=== PATIENT | female | born 2000 | race Caucasian/White ===

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

== ENCOUNTER 2023-05-14 10:35 | Emergency (ER) | payer OTHER, SELFPAY ==
[2023-05-14 10:51] VITALS: BP 110/71; PULSE 81; RESP 18; TEMP 36.3; O2SAT 100
[2023-05-14 11:18] LABS: Appearance Urine Cloudy (Clear); Bacteria Urine 1+ /hpf; Bilirubin Urine Negative (Negative); Blood Urine Negative (Negative); Color Urine Yellow (Yellow); Glucose Urine UA Negative (Negative); Ketones Urine 2+ mg/dL (Negative); Leukocyte Esterase Ur 1+ LEU/UL (Negative); Nitrate Urine Negative (Negative); Non Pathogenic Casts 0-2; Protein Urine Negative (Negative); RBC Urine 0-2 /hpf (0-2); Specific Grav Ur 1.025 (1.001-1.035); Squamous Epithelial Cell Urine Moderate /hpf (Few)
[2023-05-14 11:29] LABS: Add Urine Microscopic? YES
[2023-05-14 11:49] LABS: Basophils Percent Auto 0.4 % (0.2-1.2); Eosinophils Percent Auto 0.3 % (0-4.4); Hematocrit 43.1 % (37.0-47.0); Hemoglobin 14.5 g/dL (12.0-15.0); Immature Granulocyte Absolute 0.03 K/mm3 (0.00-0.031); Immature Granulocyte Percent A 0.4 % (0-0.5); Lymphocytes Absolute Auto 0.31 K/mm3 (0.9-3.2); Lymphocytes Percent Auto 4.3 % (18.3-44.2); Mean Corpuscular HGB Conc 33.6 g/dl (32-36); Mean Corpuscular Hemoglobin 31.4 pg (26-34); Mean Corpuscular Volume 93.3 fl (80-100); Monocytes Absolute Auto 0.2 K/mm3 (0.1-0.6); Neutrophils Absolute Auto 6.7 K/mm3 (1.3-6.7); Neutrophils Percent Auto 91.6 % (45.5-73.1); Platelet Count Result 252 k/mm3 (150-375); Red Blood Count 4.62 M/mm3 (4.2-5.4); Red Cell Distribution Width 12.4 % (11.5-14.5); White Blood Count 7.3 K/mm3 (4.5-10.0)
[2023-05-14 11:58] LABS: Alanine Aminotransferase 14 U/L (6-35); Albumin Level 4.5 g/dL (3.5-5.1); Alkaline Phosphatase 55 U/L (38-126); Anion Gap 6 mmol/L (8-16); Aspartate Amino Transferase 24 U/L (14-36); Bilirubin,Total 1.3 mg/dL (0.2-1.3); Blood Urea Nitrogen 19 mg/dL (7-17); Calcium 9.3 mg/dL (8.4-10.2); Carbon Dioxide 25 mmol/L (22-30); Chloride 106 mmol/L (98-107); Estimated CRCL calculation 107 ml/min; Estimated Glomerular Filt Rate > 60; Glucose 118 mg/dL (65-110); Lipase 41 U/L (23-300); Potassium 3.9 mmol/L (3.4-5.0); Sodium 137 mmol/L (137-145)
[2023-05-14 12:00] VITALS: BP 104/63; BP 114/68; PULSE 58; PULSE 62
[2023-05-14 12:01] VITALS: BP 114/68; PULSE 62; RESP 15; O2SAT 99
[2023-05-14 12:02] VITALS: BP 98/48; PULSE 78
[2023-05-14] MEDS: ONDANSETRON INJ 4 MG/2 ML VIAL IV PUSH (12:02)
[2023-05-14] MEDS: SODIUM CHLORIDE 0.9% IV 1,000 ML 999 ML IV CONT (12:02)
[2023-05-14 13:14] VITALS: BP 114/66; PULSE 60; RESP 14; O2SAT 100
--- NOTE | 2023-05-14 13:24 | ED.NAVMDI ---
HPI - Nausea/Vomiting/Diarrhea General Chief complaint: Nausea/Vomiting/Diarrhea Stated complaint: N&V Time Seen by Provider: 05/14/23 11:42 History of Present Illness HPI Narrative: patient is a 22-year-old female who presents ER with nausea and vomiting. Sudden onset this morning. Associated with diarrhea. Unable to keep any food down. She reports her children have recently had a GI illness. No blood in her stool or emesis. No fevers or chills or sweats. No syncope. She does get lightheaded with standing. Related Data Allergies Allergy/AdvReac Type Severity Reaction Status Date / Time No Known Allergies Allergy Mild Verified 05/14/23 10:55 Review of Systems Review of Systems: All systems reviewed & are unremarkable except as noted in HPI and below ENT: Reports system reviewed and no additional complaints, except as documented Cardiovascular: Cardiovascular: Reports no additional cardiovascular complaints Respiratory: Respiratory: Reports no additional respiratory complaints Gastrointestinal: Gastrointestinal: Denies abdominal pain, Reports bloating, Reports diarrhea, Reports nausea and Reports vomiting Genitourinary: Genitourinary: Reports no additional female genitourinary complaints [facility] Past Medical History Medical History (Updated 05/14/23 @ 13:29 by Ger Butcher MD) Healthy female adult Surgical History Surgical History (Updated 05/14/23 @ 13:27 by Ger Butcher MD) No history of previous surgery Social History Social History (Updated 09/06/19 @ 13:15 by Krunal Lee, PAZacC) Smoking status: Never smoker Exam Narrative: GENERAL: Well-appearing, well-nourished, and in no acute distress. HEAD: Normocephalic, atraumatic. ENT: Mucous membranes moist. CHEST: Clear to auscultation. No respiratory distress. HEART: Regular rate and rhythm. Normal peripheral pulses. ABDOMEN: Soft, nontender, nondistended. EXTREMITIES: Normal range of motion. No edema. SKIN: Warm, dry, no rash. NEURO: Alert and oriented x3. PSYCH: Normal mood and affect. Course Course Emergency Course: patient feels much better after IV fluid and the Zofran. She is eating and drinking without issue. Discharge home with supportive care. Patient without urinary symptoms will not treat the urinalysis at this time. Recommend follow-up with PCP. Vital Signs Vital signs: Vital Signs Temperature 97.3 F L 05/14/23 10:51 Pulse Rate 81 05/14/23 10:51 Respiratory Rate 18 05/14/23 10:51 Blood Pressure 110/71 05/14/23 10:51 Pulse Oximetry 100 05/14/23 10:51 Oxygen Delivery Room Air 05/14/23 10:51 Temperature 97.3 F L 05/14/23 10:51 Pulse Rate 60 05/14/23 13:14 Respiratory Rate 14 05/14/23 13:14 Blood Pressure 114/66 05/14/23 13:14 Pulse Oximetry 100 05/14/23 13:14 Oxygen Delivery Room Air 05/14/23 10:51 MDM - Nausea/Vomiting/Diarrhea Lab Data 05/14/23 11:45 05/14/23 11:45 Labs: Lab Results 05/14/23 05/14/23 Range/Units 11:06 11:45 WBC 7.3 (4.5-10.0) K/mm3 RBC 4.62 (4.2-5.4) M/mm3 Hgb 14.5 (12.0-15.0) g/dL Hct 43.1 (37.0-47.0) % MCV 93.3 (80-100) fl MCH 31.4 (26-34) pg MCHC 33.6 (32-36) g/dl RDW 12.4 (11.5-14.5) % Plt Count 252 (150-375) k/mm3 MPV 10.0 (7.4-10.4) fl Immature Gran % (Auto) 0.4 (0-0.5) % Neut % (Auto) 91.6 H (45.5-73.1) % Lymph % (Auto) 4.3 L (18.3-44.2) % Crockett % (Auto) 3.0 (2.6-8.5) % Eos % (Auto) 0.3 (0-4.4) % Baso % (Auto) 0.4 (0.2-1.2) % Lymph # (Auto) 0.31 L (0.9-3.2) K/mm3 [place]ckett # (Auto) 0.2 (0.1-0.6) K/mm3 Eos # (Auto) 0.0 (0-0.3) K/mm3 Baso # (Auto) 0.0 (0.0-0.1) K/mm3 Abs Immat Gran (auto) 0.03 (0.00-0.031) K/mm3 Absolute Neuts (auto) 6.7 (1.3-6.7) K/mm3 Absolute Nucleated RBC 0.0 (0.0-0.012) K/mm3 Nucleated RBC % 0.0 (0.0-0.2) % Sodium 137 (137-145) mmol/L Potassium 3.9 (3.4-5.0)
== END 2023-05-14 13:49 | disposition home or self-care (01) ==
PROVIDERS: Emergency Provider Emergency Medicine
DX: K52.9 Noninfective gastroenteritis and colitis, unspecified (principal)
CPT/HCPCS: 36415; 80053; 81001; 81025; 83690; 85025; 87086; 96361; 96374; 99284; J2405; J7030